=== PATIENT | female | born 1945 | race Caucasian/White ===

== ENCOUNTER → 2017-12-22 | Outpatient (CLI) | payer OTHER ==
[~2017-12-22] MED LIST: ALEN70TA5 PO; AMLO1CAP15 PO; ATOR10TA9 PO; CALC1TAB4 PO; CALC625T68 PO; CART1TAB5 PO; CHOL2000 PO; CINN500C2 PO; CYAN50TA PO; LEVO125T63 PO; MAGN400C PO; MULT-717 PO; OMEG300C PO; OXYC-302 PO; SENN1TAB67 PO; TUM PO; VITA1TAB19 PO
== END | disposition home or self-care (01) ==
LOC: CFH 10:53
PROVIDERS: ATTEND Genetic Counselor, MS
DX: Z13.820 Encounter for screening for osteoporosis (principal); M81.0 Age-related osteoporosis without current pathological fracture
CPT/HCPCS: 77080

== ENCOUNTER 2018-04-22 12:12 | Observation (INO) | payer MEDICARE, OTHER ==
[~2018-04-22] VITALS: Ht 165.1 cm; Wt 76.6 kg
[~2018-04-22 12:12] MED LIST changes: -ALEN70TA5 PO; +ALEN70TA6 PO
[2018-04-22 12:48] LABS: BASOPHILS # (AUTO) 0.03 x10^3/uL (0-0.1); BASOPHILS % (AUTO) 1 % (0-1); EOSINOPHILS # (AUTO) 0.05 x10^3/uL (0-0.4); EOSINOPHILS % (AUTO) 1 % (1-7); LYMPHOCYTES # (AUTO) 1.12 x10^3/uL (1-3.4); LYMPHOCYTES % (AUTO) 18 % (22-44); MD NO; MEAN CORPUSCULAR HGB CONC 33.6 g/dL (32.4-35.8); MEAN CORPUSCULAR VOLUME 95.3 fL (80-100); MEAN PLATELET VOLUME 8.8 fL (7.4-10.4); MONOCYTES # (AUTO) 0.37 x10^3/uL (0.2-0.8); MONOCYTES % (AUTO) 6 % (2-9); NEUTROPHILS # (AUTO) 4.59 x10^3/uL (1.8-6.8); NEUTROPHILS % (AUTO) 75 % (42-75); PLATELET COUNT 173 x10^3/uL (130-400); RED CELL DISTRIBUTION WIDTH 14.1 % (9.6-15.2)
[2018-04-22 12:54] LABS: ALANINE AMINOTRANSFERASE 45 U/L (12-78); ALBUMIN 3.9 g/dL (3.4-5.0); ANION GAP 6 mmol/L (5-15); CALCIUM 8.7 mg/dL (8.5-10.1); CHLORIDE 107 mmol/L (98-107); CREATININE 0.95 mg/dL (0.55-1.02)
[2018-04-22 12:58] LABS: ALKALINE PHOSPHATASE 61 U/L (45-117); BILIRUBIN,TOTAL 0.6 mg/dL (0.2-1.0); TOTAL PROTEIN 7.9 g/dL (6.4-8.2); TROPONIN I < 0.015 ng/mL (0.000-0.045)
--- NOTE | 2018-04-22 14:58 | NUR ---
AFTER ER MD LOUIS, PT UOB TO BATHROOM, AMBULATING WITHOUT ASSISTANCE AND DAUGHTER AT SIDE
[2018-04-22] MEDS ORDERED: OXYB5TAB7 PO ×2 (15:06→22:35)
[2018-04-22] MEDS ORDERED: LEVO112T41 PO (15:12)
[2018-04-22] MEDS ORDERED: ONDANSETRON ODT 4 MG PO PRN (15:30)
[2018-04-22] MEDS ORDERED: NITROGLYCERIN 0.4 MG/SPRAY SL PRN (15:30)
[2018-04-22] MEDS ORDERED: ACETAMINOPHEN 325 MG TABLET PO PRN (15:30)
[2018-04-22] MEDS ORDERED: GUAIFENESIN/DM 200-20MG, 10ML UDC PO PRN (15:30)
[2018-04-22] MEDS ORDERED: NITROGLYCERIN 0.4 MG BOTTLE (25 TABS) SL PRN (15:30)
[2018-04-22] MEDS ORDERED: ONDANSETRON 2MG/ML, 2ML IVPush PRN (15:30)
[2018-04-22] MEDS ORDERED: hydrALAzine 20 MG/ML, 1ML IVPush PRN (15:30)
[2018-04-22] MEDS ORDERED: DOCUSATE 100 MG CAPSULE PO PRN (15:30)
[2018-04-22] MEDS ORDERED: HEPARIN 5,000 UNITS/ML, 1ML ONE (16:05)
[2018-04-22] MEDS: HEPARIN 5,000 UNITS/ML, 1ML SQ SCH ×2 (16:11→23:26)
[2018-04-22 16:13] LABS: TROPONIN I < 0.015 ng/mL (0.000-0.045)
[2018-04-22 16:19] LABS: THYROID STIMULATING HORMONE 0.317 mIU/L (0.358-3.740)
[2018-04-22 17:50] VITALS: BP 139/78
[2018-04-22 20:00] VITALS: BP 130/83
[2018-04-22] MEDS ORDERED: BENAZEPRIL 20 MG TABLET PO SCH (21:00)
[2018-04-22 21:52] LABS: TROPONIN I < 0.015 ng/mL (0.000-0.045)
[2018-04-22] MEDS ORDERED: AMLODIPINE 10 MG TAB PO SCH (23:00)
[2018-04-22] MEDS ORDERED: BISACODYL 10 MG SUPP PR PRN (23:00)
[2018-04-22] MEDS ORDERED: ATORVASTATIN 10 MG TABLET PO SCH (23:00)
[2018-04-22] MEDS: OXYBUTYNIN CHLORIDE 5 MG TABLET PO SCH (23:26)
[2018-04-23 00:34] VITALS: BP 120/72
[2018-04-23 06:46] LABS: CHOL/HDL RATIO 2.3
[2018-04-23 07:12] VITALS: BP 124/75
[2018-04-23] MEDS ORDERED: REGADENOSON 0.4 MG/5 ML SYRINGE ONE (08:30)
[2018-04-23 13:10] VITALS: BP 147/82
[2018-04-23] MEDS: OXYBUTYNIN CHLORIDE 5 MG TABLET PO SCH (13:17)
[2018-04-23] MEDS: HEPARIN 5,000 UNITS/ML, 1ML SQ SCH (14:00)
[2018-04-23 17:12] LABS: HEMOGLOBIN A1C 5.5 % (4.2-6.3)
== END 2018-04-23 16:35 | disposition home or self-care (01) ==
LOC: ED 14:34 → INTOOBSV 14:51 → UNDOADMOB 14:51 → EDIP 14:51 → 5SO 17:26 → EDIP 17:26 → 5SO 17:26 → DCLOUNGE 04-23 16:09 → 5SO 04-23 16:09 → DCLOUNGE 04-23 16:09 → UNDODISOB 04-23 16:35
PROVIDERS: ADMIT Internal Medicine; ATTEND Internal Medicine
DX: R07.89 Other chest pain (principal); I10 Essential (primary) hypertension; M19.90 Unspecified osteoarthritis, unspecified site; E03.9 Hypothyroidism, unspecified; N28.89 Other specified disorders of kidney and ureter; R01.1 Cardiac murmur, unspecified
CPT/HCPCS: 36415; 71046; 78452; 80053; 80061; 83036; 84439; 84443; 84484; 85025; 93005; 93017; 93306; 94660; 96372; 99284; A9502; C9898; G0378; J1644; J2785; 99285

== ENCOUNTER → 2019-12-13 | Outpatient (CLI) | payer MEDICARE ==
[~2019-12-13] MED LIST changes: -AMLO1CAP15 PO; +AMLO1CAP54 PO; +LEVO112T41 PO; +OXYB5TAB10 PO
== END | disposition home or self-care (01) ==
LOC: CVU 14:36
PROVIDERS: ATTEND Genetic Counselor, MS
DX: I08.0 Rheumatic disorders of both mitral and aortic valves (principal); I11.9 Hypertensive heart disease without heart failure
CPT/HCPCS: 93306